=== PATIENT | female | born 1985 | race Caucasian/White ===

== ENCOUNTER 2017-12-20 08:49 | Day surgery (SDC) | payer OTHER ==
[~2017-12-20] VITALS: Ht 160 cm; Wt 83.0 kg
[~2017-12-20 08:49] MED LIST: CEPH500 PO; CLIN300 PO; HYDACE5 PO; Verotin-Gr Cap1 EACH
[2017-12-20] MEDS ORDERED: IBUP400 PO (09:32)
[2017-12-20] MEDS ORDERED: ACET500 PO (09:32)
== END 2017-12-20 12:23 | disposition home or self-care (01) ==
LOC: ORSCSDS 08:49
PROVIDERS: Obstetrics & Gynecology
PROC: 0U5B8ZZ Destruction of Endometrium, Via Natural or Artificial Opening Endoscopic (ICD-10-PCS; principal; 2017-12-20 10:00)
DX: N92.1 Excessive and frequent menstruation with irregular cycle (principal)
CPT/HCPCS: 88305; J0690; J1100; J2405; J3010; J7120

== ENCOUNTER 2023-05-25 06:26 | Emergency (ER) | payer OTHER ==
[~2023-05-25] VITALS: Ht 162.6 cm; Wt 80.7 kg
[~2023-05-25 06:26] MED LIST changes: +ACET500 PO; +IBUP400 PO
[2023-05-25] MEDS ORDERED: VICTOZA 2-0.6 MG/0.1 (07:33)
[2023-05-25 07:46] LABS: BASOPHILS ABSOLUTE AUTO 0.02 K/mm3 (0.00-0.23); BASOPHILS PERCENT AUTO 0 % (0-2); EOSINOPHILS ABSOLUTE AUTO 0.04 K/mm3 (0.00-0.68); EOSINOPHILS PERCENT AUTO 1 % (0-6); Hematocrit 39.3 % (33.0-51.0); IMMATURE GRAN ABSOLUTE AUTO 0.01 K/mm3 (0.00-0.10); IMMATURE GRAN PERCENT AUTO 0 % (0-1); LYMPHOCYTES PERCENT AUTO 26 % (21-46); MONOCYTES ABSOLUTE AUTO 0.32 K/mm3 (0.16-1.47); MONOCYTES PERCENT AUTO 6 % (4-13); Mean Corpuscular HGB Conc 35.6 g/dL (31.5-36.5); Mean Corpuscular Volume 87 fL (80-100); Mean Platelet Volume 12.6 fL (9.1-12.4); NEUTROPHILS ABSOLUTE AUTO 3.41 K/mm3 (1.96-9.15); NEUTROPHILS PERCENT AUTO 67 % (41-73); Platelet Count 136 K/mm3 (150-400); RDW Coefficient Variation 11.8 % (11.7-14.2); RDW Standard Deviation 37.4 fL (35.1-46.3); Red Blood Cell Count 4.52 M/mm3 (3.80-5.20)
[2023-05-25 07:48] LABS: Source, Urine Clean Catch
[2023-05-25 07:56] LABS: Albumin, Blood 4.1 g/dL (3.4-5.0); Albumin/Globulin Ratio 1.2 (0.8-1.8); Bilirubin, Total 0.7 mg/dL (0.1-1.0); Bun/Creatinine Ratio 14.7 (12.0-20.0); Calcium, Blood 8.9 mg/dL (8.5-10.1); Creatinine, Blood 0.68 mg/dL (0.40-1.00); Globulin, Blood 3.3 g/dL (2.2-4.0); Potassium, Blood 3.7 mmol/L (3.5-5.5); Total Protein, Blood 7.4 g/dL (6.4-8.2)
[2023-05-25 08:02] LABS: Appearance, Urine Clear (Clear); Blood, Urine 4+ (Neg); Glucose Qualitative, Urine Neg (Neg); Ketones, Urine Neg (Neg); Leukocyte Esterase, Urine Neg (Neg); Nitrite, Urine Pos (Neg); Protein, Urine Neg (Neg); Specific Gravity, Urine 1.005 (1.003-1.022); Urobilinogen, Urine 1+ (Normal)
[2023-05-25 08:07] LABS: Bilirubin, Urine 1+ (Neg)
[2023-05-25 08:08] LABS: Color, Urine Orange (P-Yellow)
[2023-05-25 08:30] LABS: Mucus Light (0-Heavy); Squamous Epithelial Cells Few /hpf (Few)
[2023-05-25 08:31] LABS: Bacteria Few /hpf
[2023-05-25 09:56] VITALS: BP 116/75
[2023-05-25] MEDS ORDERED: Flomax0.4 MG PO (11:20)
[2023-05-25] MEDS ORDERED: Keflex500 MG PO (11:20)
== END 2023-05-25 11:35 | disposition home or self-care (01) ==
LOC: ER 06:26
PROVIDERS: Family Medicine
DX: N13.6 Pyonephrosis (principal); K59.00 Constipation, unspecified; D69.6 Thrombocytopenia, unspecified; Z88.0 Allergy status to penicillin; Z79.899 Other long term (current) drug therapy
CPT/HCPCS: 74176; 80053; 81001; 81025; 83690; 85025; 87086; 96365; 96375; 99284-25; J0696; J1885; J2765